=== PATIENT | male | born 1960 | race Asian ===

== ENCOUNTER 2018-06-30 09:46 | Day surgery (SDC) | payer OTHER ==
[~2018-06-30] VITALS: Ht 160 cm; Wt 52.3 kg
[2018-06-30 10:32] VITALS: Ht 160 cm; Wt 52.3 kg
[2018-06-30] MEDS ORDERED: MTF1000T PO (10:40)
[2018-06-30] MEDS ORDERED: SIMV5TAB14 PO (10:40)
[2018-06-30] MEDS ORDERED: ASPI-903 PO (10:40)
[2018-06-30 10:59] VITALS: BP 188/82; PULSE 63; RESP 15
[2018-06-30] MEDS ORDERED: MIDAZOLAM 1 MG/ML 2 ML INJ ONE (12:28)
[2018-06-30] MEDS ORDERED: FENTAnyl 50 MCG/ML VIAL ONE (12:28)
[2018-06-30 12:45] VITALS: BP 152/79; PULSE 49; RESP 19
== END 2018-06-30 16:13 | disposition home or self-care (01) ==
LOC: GIL 09:46
PROVIDERS: ATTEND Internal Medicine Gastroenterology
DX: Z12.11 Encounter for screening for malignant neoplasm of colon (principal); K64.8 Other hemorrhoids; E11.9 Type 2 diabetes mellitus without complications
CPT/HCPCS: 45378; J2250; J3010